=== PATIENT | male | born 2000 | race Caucasian/White ===

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

== ENCOUNTER 2022-07-16 18:35 | Emergency (ER) | payer OTHER, SELFPAY ==
[2022-07-16 18:43] VITALS: BP 114/60; PULSE 93; RESP 16; TEMP 36.7; O2SAT 100
--- NOTE | 2022-07-16 18:51 | ED.GENADULT ---
HPI - General Adult General Chief complaint: Abdominal Pain Stated complaint: abd pain/vomiting Time Seen by Provider: 07/16/22 18:45 Source: patient, RN notes reviewed and old records reviewed Mode of arrival: ambulatory Limitations: no limitations History of Present Illness HPI narrative: 22 year old male who present to [facility] care with 3 day history of right ear pain. Patient states that his ear felt like he had water in it after swimming one week ago. Patient also reports that he awoke this morning at 0200 and had abdominal pain and vomiting but that has resolved presently after taking acid reflux medication.Patient denies any fevers, chills or sweats, denies any sinus congestion or drainage or any cough. Patient requests work note MD complaint: ear pain, episode of abdominal pain with vomiting Onset (ago): day(s) (3) Location: face (right ear) Severity scale (1-10): 6 Treatments prior to arrival: NSAID and other (acid reflux medication) Related Data Home Medications Medication Instructions Recorded Confirmed albuterol sulfate 90 mcg/actuation inhalation 07/16/22 aerosol inhaler Allergies Allergy/AdvReac Type Severity Reaction Status Date / Time No Known Allergies Allergy Verified 07/16/22 18:42 Review of Systems Review of Systems: CONSTITUTIONAL: Denies fever, chills, or sweats. EYES: Denies visual changes, redness, or discharge. ENT: Denies rhinorrhea, congestion, sore throat, positive for right ear otalgia. CARDIOVASCULAR: Denies chest pain, palpitations, or edema. RESPIRATORY: Denies cough or dyspnea. GASTROINTESTINAL: Denies abdominal pain, nausea, vomiting, or diarrhea.presently episode at 0200 with abdominal pain and vomiting GENITOURINARY: Denies dysuria or hematuria. SKIN: Denies rash or itching. MUSCULOSKELETAL: Denies back pain, joint pain, or myalgia. NEUROLOGIC: Denies headache, numbness, or weakness. PSYCHIATRIC: positive history of anxiety or depression. All systems reviewed & are unremarkable except as noted in HPI and below PMFSH Past Medical History Medical History (Updated 07/18/22 @ 10:56 by Kimberlee Christopher NP) Abscess of leg At age 4. ADHD Asthma Chronic neck pain Eczema GERD (gastroesophageal reflux disease) Hx of migraines Surgical History Surgical History Surgical history unknown Social History Social History Gender identity (if verbalized by the patient): Male Comments At time of signature, agree with nursing past medical, surgical, social and family history. There is no relevant family history pertinent to the presenting complaint Exam Narrative: GENERAL: Well-appearing, well-nourished, and in no acute distress. HEAD: Normocephalic, atraumatic. EYES: PERRLA and EOMI. ENT: Nares clear, no rhinorrhea or epistaxis. Mucous membranes moist.Right TM normal with good light reflex, ear anal red and irritated, no drainage noted, Left TM noted normal with good light reflex, throat pink with no lesions or swelling. CHEST: Clear to auscultation. No respiratory distress. SaO2 100% on room air HEART: Regular rate and rhythm. No murmur heard. Normal peripheral pulses. ABDOMEN: Soft, nontender to palpation, nondistended, normal active bowel sounds.denies any further abdominal pain at present and no further nausea EXTREMITIES: Normal range of motion. No edema. SKIN: Warm, dry, no rash. NEURO: No focal deficits. Alert and oriented x3. Course Course Level of Care: Express Care Visit Vital Signs Vital signs: Vital Signs Temperature 36.7 C 07/16/22 18:43 Pulse Rate 93 07/16/22 18:43 Respiratory Rate 16 07/16/22 18:43 Blood Pressure 114/60 07/16/22 18:43 Pulse Oximetry 100 07/16/22 18:43 Oxygen Delivery Room Air 07/16/22 18:43 Temperature 36.7 C 07/16/22 18:59 Pulse Rate 93 07/16/22 18:59 Respiratory Rate 16 07/16/22 18:59 Blood P
[2022-07-16 18:59] VITALS: BP 114/60; PULSE 93; RESP 16; TEMP 36.7; O2SAT 100
== END 2022-07-16 19:07 | disposition home or self-care (01) ==
PROVIDERS: Emergency Provider Registered Nurse; PCP Pediatrics Adolescent Medicine
DX: H60.91 Unspecified otitis externa, right ear (principal); J45.909 Unspecified asthma, uncomplicated; K21.9 Gastro-esophageal reflux disease without esophagitis
CPT/HCPCS: 99213; G0463